=== PATIENT | female | born 1990 | race Caucasian/White ===

== ENCOUNTER 2018-02-08 13:19 | Outpatient (CLI) | payer BC ==
--- NOTE | 2018-02-08 15:08 | RAD ---
THORACIC SPINE THREE VIEWS: INDICATIONS: Thoracic pain. FINDINGS: The thoracic vertebrae maintain normal height and alignment. Disk spaces are preserved. No lytic or blastic process is seen. No compression deformity. IMPRESSION: Unremarkable thoracic spine. POS: [facility]
== END 2018-02-08 13:20 | disposition home or self-care (01) ==
LOC: BICRAD 13:19
PROVIDERS: ATTEND Family Medicine
DX: M54.6 Pain in thoracic spine (principal)
CPT/HCPCS: 72072